=== PATIENT | female | born 1995 | race Caucasian/White ===

== ENCOUNTER 2021-03-27 17:56 | Emergency (ER) | payer OTHER ==
[~2021-03-27] VITALS: Ht 167.6 cm; Wt 59.0 kg
[2021-03-27] MEDS ORDERED: PERCOCET 5-3251 EACH PO (19:55)
[2021-03-27] MEDS ORDERED: ACETAMINOPHEN650 M2 (20:01)
== END 2021-03-27 20:02 | disposition home or self-care (01) ==
LOC: ER 17:56
DX: S42.251A Displaced fracture of greater tuberosity of right humerus, initial encounter for closed fracture (principal); S50.01XA Contusion of right elbow, initial encounter; W18.39XA Other fall on same level, initial encounter; Y93.89 Activity, other specified; Y92.828 Other wilderness area as the place of occurrence of the external cause; Y99.8 Other external cause status

== ENCOUNTER 2022-11-17 00:35 | Emergency (ER) | payer OTHER ==
[~2022-11-17] VITALS: Ht 167.6 cm; Wt 59.0 kg
[~2022-11-17 00:35] MED LIST: ACETAMINOPHEN650 M2; PERCOCET 5-3251 EACH PO
[2022-11-17] MEDS ORDERED: CEPHALEXIN500 MG PO (02:23)
== END 2022-11-17 02:31 ==
LOC: ER 00:35
DX: S01.95XA Open bite of unspecified part of head, initial encounter (principal); W54.0XXA Bitten by dog, initial encounter; Y93.9 Activity, unspecified; Y92.019 Unspecified place in single-family (private) house as the place of occurrence of the external cause; Y99.9 Unspecified external cause status